=== PATIENT | male | born 1985 | race Caucasian/White ===

== ENCOUNTER 2019-09-30 06:30 | Day surgery (SDC) | payer OTHER ==
[~2019-09-30] VITALS: Ht 172.7 cm; Wt 79.1 kg
[2019-09-30 06:08] LABS: EOSINOPHILS % (AUTO) 2.1 % (1.0-6.0); HEMOGLOBIN 14.3 g/dL (13.5-17.5); LYMPHOCYTES # (AUTO) 4.2 K/uL (1.0-4.8); LYMPHOCYTES % (AUTO) 41.4 % (22.0-44.0); MEAN CORPUSCULAR HEMOGLOBIN 31.3 pg (26.0-34.0); MEAN CORPUSCULAR HGB CONC 34.1 G/dL (31.0-37.0); MEAN CORPUSCULAR VOLUME 92 fL (80-100); MONOCYTES # (AUTO) 0.7 K/uL (0.1-1.0); MONOCYTES % (AUTO) 7.4 % (2.0-9.0); NEUTROPHILS # (AUTO) 4.9 K/uL (1.8-7.7); NEUTROPHILS % (AUTO) 48.1 % (40.0-70.0); PLATELET COUNT (AUTO) 324 K/uL (150-450); RED BLOOD CELL COUNT(AUTO) 4.56 MIL/uL (4.50-5.90); RED CELL DISTRIBUTION WIDTH 13.6 % (11.5-14.5)
[2019-09-30 06:16] LABS: ANION GAP 8 mmol/L (8-16); CALCIUM, TOTAL 8.9 mg/dL (8.8-10.5); CARBON DIOXIDE 30 mmol/L (22-29); CHLORIDE 101 mmol/L (98-107); CREATININE 0.63 mg/dL (0.60-1.30); GLOMERULAR FILTR. RATE CALC > 60 mL/min (>60); GLUCOSE,RANDOM 91 mg/dL (70-110); POTASSIUM 4.4 mmol/L (3.5-5.1); SODIUM SERUM 139 mmol/L (136-145); UREA NITROGEN, BLOOD 9 mg/dL (7-18)
[2019-09-30 06:19] LABS: PROTHROMBIN TIME 10.7 SEC (9.4-11.6)
[~2019-09-30 06:30] MED LIST: ACET-66 PO; BUPIVACAINE HCL/PF 0.25% 30 ML VIAL ONE; BUPIVACAINE LIPOSOME/PF 1.3%-13.3MG/ML SUSPENSION 10 ML VIAL INJ ONE; CeFAZolin 2 GM/DEXTROSE 50 ML IV ONE; IBUP-2070 PO; IBUP-2271 PO; MICROFIBRILLAR COLLAGEN 1 GM PACKAGE TP ONE; MUPIROCIN CALCIUM 2% 22 GM OINTMENT ONE; RINGERS SOLUTION,LACTATED 1,000 ML IV ONE; VANCOMYCIN HCL 1 GM/VIAL ONE
[2019-09-30] MEDS ORDERED: PROPOFOL 1% 20 ML VIAL IVP ONE (06:31)
[2019-09-30] MEDS ORDERED: MIDAZOLAM HCL 2 MG/2 ML VIAL IVP ONE (06:31)
[2019-09-30] MEDS ORDERED: DEXAMETHASONE SOD PHOS 4 MG/ML VIAL IVP ONE (06:31)
[2019-09-30] MEDS ORDERED: ONDANSETRON HCL 4 MG/2 ML VIAL IVP ONE (06:31)
[2019-09-30] MEDS ORDERED: KETOROLAC TROMETHAMINE 60 MG/2 ML VIAL IM ONE (06:31)
[2019-09-30] MEDS ORDERED: FentaNYL CITRATE-PF 100 MCG/2 ML VIAL IVP ONE (06:31)
[2019-09-30] MEDS ORDERED: SODIUM CL IRRIG SOLN BAG 0 ML IRRIG ONE (06:49)
[2019-09-30] MEDS ORDERED: FentaNYL CITRATE-PF 100 MCG/2 ML VIAL IVP PRN (07:00)
[2019-09-30] MEDS ORDERED: CeFAZolin 2 GM/DEXTROSE 50 ML IV ONE (07:00)
[2019-09-30] MEDS ORDERED: MEPERIDINE-PF 25 MG/ML VIAL IVP PRN (07:00)
[2019-09-30] MEDS ORDERED: LIDOCAINE/PF 1% 2 ML VIAL ID ONE (07:00)
[2019-09-30] MEDS ORDERED: MEPERIDINE-PF 25 MG/ML VIAL ONE (08:16)
[2019-09-30] MEDS ORDERED: RINGERS SOLUTION,LACTATED 1,000 ML IV ONE (08:16)
[2019-09-30] MEDS ORDERED: HYDROmorphone 2 MG/ML SYRINGE ONE (08:24)
[2019-09-30] MEDS: HYDROmorphone 2 MG/ML SYRINGE IVP PRN ×2 (08:25→08:35)
[2019-09-30] MEDS ORDERED: CeFAZolin 1 GM/DEXTROSE 50 ML IV ONE ×2 (09:05→10:00)
[2019-09-30] MEDS ORDERED: OxyCODONE HCL/ACETAMINOPHEN 10-325 MG TABLET ONE (09:42)
[2019-09-30] MEDS ORDERED: OxyCODONE HCL/ACETAMINOPHEN 10-325 MG TABLET PO PRN (09:45)
== END 2019-09-30 10:25 | disposition home or self-care (01) ==
LOC: SURGERY 06:30
PROVIDERS: ATTEND Orthopaedic Surgery
DX: S62.614A Displaced fracture of proximal phalanx of right ring finger, initial encounter for closed fracture (principal); Z11.59 Encounter for screening for other viral diseases; Z79.01 Long term (current) use of anticoagulants; Z87.891 Personal history of nicotine dependence; X58.XXXA Exposure to other specified factors, initial encounter; Y93.89 Activity, other specified; Y92.89 Other specified places as the place of occurrence of the external cause; Y99.8 Other external cause status
CPT/HCPCS: 26035; 26440; 26445; 26735; 73130; 36415; 80048; 85025; 85610; 85730; 87635; C1713; J0690 ×2; J1100; J1170; J1885; J2175; J2250; J2405; J2704; J3010; J7120; J3370; J3490